=== PATIENT | female | born 1945 | race Caucasian/White ===

== ENCOUNTER 2021-08-28 07:31 | Day surgery (SDC) | payer OTHER, SELFPAY ==
[2021-08-28 07:45] VITALS: BP 148/79; PULSE 76; RESP 16; TEMP 36.3; O2SAT 96; BMI 29.6
[2021-08-28] MEDS: BUPIVACAINE 0.5% 30 ML INJECTION (07:45)
[2021-08-28] MEDS: SODIUM CHLORIDE 0.9 % (FLUSH) 10 ML SYRINGE IVF (07:58)
[2021-08-28] MEDS: LACTATED RINGERS 1000 ML 1,000 ML 100 ML IV (07:58)
[2021-08-28] MEDS: lidocaine HCL 2 % MULTIDOSE 20 ML VIAL INJECTION (08:12)
--- NOTE | 2021-08-28 08:30 | CRLHL7_ITS ---
For Patients: As a result of the Cures Act, medical imaging exams and procedure reports are released immediately into your electronic medical record. You may view this report before your referring provider. If you have questions, please contact your health care provider. Indication: LEFT 2ND FINGER ARTHRODESIS Technique: Two fluoroscopic images of the left index finger. Fluoroscopic time 24.2 seconds. IMPRESSION: Fluoroscopic guidance for fusion across the index finger DIP joint. Dictated by Kevon Wheeler MD @ 08/28/2021 10:39:27 AM (Electronically Signed)
[2021-08-28] MEDS: CEFAZOLIN 1 GM inj IVP (09:30)
--- NOTE | 2021-08-28 10:10 | SUR.OPER ---
PATIENT QUESTIONS ANSWERED SATISFACTORILY PREOPERATIVELY.? PATIENT BROUGHT TO OR #3 PER CART.? Patient positioned supine on OR #3 bed.?The perioperative?team supported arms bilaterally on arm boards.? Final approval of positioning by surgeon.?
[2021-08-28] MEDS: NEOMYCIN/BACITRACIN/POLYMYXIN B 1 APPLIC TOPICAL (10:11)
--- NOTE | 2021-08-28 10:22 | SUR.OPER ---
LEFT INDEX FINGER IRRIGATED W/N.S. POUR AT 1019.
--- NOTE | 2021-08-28 10:24 | PM.ORPRC ---
Procedure Note Date of procedure: 08/28/21 Procedure: PREOPERATIVE DIAGNOSIS: 1. 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 Left index finger DIP joint arthrodesis 2. 31544 - Intraoperative fluoroscopy use and interpretation. SURGEON: Mario Morataya MD. FIBERGLASS PIPE COVERING SUPERVISOR: Fermin RANGEL - Of note, an corporate legal assistant was critical for this case to aid in patient positioning, tissue retraction, limb manipulation/positioning, finger manipulation/control, protection of critical structures, closure, and splinting. ANESTHESIA: Digital block for anesthetic-10 mL of 50:50 mixture of 0.5% Marcaine plain and 1% lidocaine plain + MAC IMPLANTS: Synthes headless compression screw (2.0 mm)-26 mm in length TOURNIQUET: 35 min of digital Brian tourniquet with excellent capillary refill upon removal. COMPLICATIONS: None evident INDICATIONS: The patient is a pleasant 76-year-old female who has experienced left index finger deformity with angulation, subluxation of the DIP joint, pain, and dysfunction. Additionally, nonoperative management of been tried and failed. Thus surgery was indicated. DESCRIPTION OF PROCEDURE: Following a thorough discussion of risks, benefits, and alternatives consent was obtained and the operative digit(s) was marked. The patient was brought to the operating room and placed supine on the operating table after preoperative digital block was administered by me in preop holding. In addition, mac anesthesia was administered. 1 g IV Ancef was administered within 1 hour incision preoperatively. Proper time-out was performed identifying proper patient, site, and procedure. The operative extremity/digit was prepped and draped in the appropriate sterile fashion using ChloraPrep. The digit was exsanguinated and the tourniquet utilized on base of the digit. A 'V' incision was made on the dorsal aspect of the operative finger DIP joint. Sharp incision down through the skin & subcutaneous tissue allowed identification of the extensor tendon. This was divided transversely. It was tagged for later repair. We elevated the flaps proximally and distally being cautious particularly distally with the germinal matrix. The joint was entered, and effusion evacuated. The collateral ligaments were released with a 15 blade on both sides, and the volar condyles of the middle phalanx were rongeured off. Large dorsal osteophyte were also rongeured off. The calcified cartilage layer was excised with rongeur and high-speed bur creating a cup and cone formation to the middle phalanx and distal phalanx, respectively. This had excellent approximation then of the bony surfaces. Small drill holes were created within the distal phalanx base for bleeding purposes. A 0.8mm guide pin was passed in a antegrade fashion into the distal phalanx and confirmed on C-arm fluoroscopic imaging to be center center position within the phalanx. The pin was then reversed and passed retrograde into the middle phalanx. Again C-arm confirmed the pin to be within the center center position in the middle phalanx. Alignment of the finger was aimed for straight on the PA perspective and slight flexion on the lateral perspective. The screw was measured, and selected. The 1.6 mm drill bit was passed retrograde through the distal phalanx and into the middle phalanx towards the base. The screw was then selected and passed smoothly. It achieved excellent compression holding the arthrodesis site stable. At this stage, a thorough irrigation normal saline was performed. Tourniquet was released. Hemostasis achieved. Closure of the skin flaps performed with 4-0 nylon in interrupted fashion. Dressings were applied and a tube gauze bulky dressing was applied. PLAN: 1. Encourage elevation of the operative extremity. 2. Icing of the fingers and hand/wrist as tolerated/needed 3. Acetaminophen and/or Percocet as needed for pain control. 4. Follow up with nursing visit in 2 days for wound check/dressing removal and Stax splint application. Then follow-up at the 2 week alex postop PA visit for suture removal. Then at the 6 week alex with myself.
[2021-08-28 10:37] VITALS: BP 96/58; PULSE 69; RESP 16; TEMP 35.9; O2SAT 96
--- NOTE | 2021-08-28 10:39 | W.ANESCHARGE ---
Anesthesia Charges Start Date/Time Anesthesia Start Date: 08/28/21 Anesthesia Start Time: 09:26 Stop Date/Time Anesthesia Stop Date: 08/28/21 Anesthesia Stop Time: 10:40 Summary Emergency: No Extremes of Age: Over 72-CPT 02147
[2021-08-28 10:40] VITALS: BP 106/92; PULSE 69; RESP 16; O2SAT 97
[2021-08-28 11:00] VITALS: BP 125/71; PULSE 62; RESP 16; O2SAT 96
--- NOTE | 2021-08-28 13:14 | W.ANESCHARGE ---
Anesthesia Charges Start Date/Time Anesthesia Start Date: 08/28/21 Anesthesia Start Time: 09:26 Stop Date/Time Anesthesia Stop Date: 08/28/21 Anesthesia Stop Time: 10:40 Summary Emergency: No Extremes of Age: Over 72-CPT 86303
== END 2021-08-28 11:15 | disposition home or self-care (01) ==
PROVIDERS: PCP Internal Medicine; Visit Provider Orthopaedic Surgery Sports Medicine
PROC: (CPT 26860; principal; 2021-08-28 09:00)
DX: M19.042 Primary osteoarthritis, left hand (principal); M25.742 Osteophyte, left hand
CPT/HCPCS: 26860; 01820; 73140; 76000; 99100; C1713; J0690; J1100; J2250; J2405; J2704; J3010; J3490; J7120

== ENCOUNTER 2021-10-17 11:30 | Outpatient (RCR) | payer OTHER, SELFPAY ==
--- NOTE | 2021-10-09 16:01 | OT.OPOE ---
OT Outpatient Ortho Eval OT Outpatient Ortho Eval Start: 10/09/21 15:02 Freq: Status: Active Protocol: Document 10/09/21 15:03 AMB (Rec: 10/09/21 15:57 AMB [id number]) E-signed By Lisa Lazar, OTR/L, CLT, HORSE TRAINER OT OP Ortho Eval Details Type Type Eval Complexity Low Outpatient History/Precautions Insurance Information Insurance Information Medicare B Current Condition/Medical Diagnosis Referring Provider Dr Morataya Treatment Diagnosis PO left index finger DIP joint arthrodesis Date of Onset 08/28/21 Medical Contraindications HTN,Metal Implants,Arthritis Medical/Functional History Medical History Reviewed Yes Prior Level of Function/Mobility Active Problems (Updated 08/22 @ 09:56 by Maximino Mike MD) Status post fusion of joint of finger (Acute 08/28/21) Z98.1 left index finger DIP joint arthrodesis Hypertension (Acute) I10 Severe acute respiratory syndrome coronavirus 2 (SARS- CoV-2) vaccination declined ( Acute) Z28.21 Pneumococcal vaccination declined (Acute) Z28.21 Osteoporosis (Acute) M81.0 Hyperlipidemia (Acute) E78.5 Hiatal hernia (Acute 11/10/17) K44.9 GERD (gastroesophageal reflux disease) (Acute) K21.9 Degeneration of intervertebral disc of cervical region ( Acute) M50.30 Chronic low back pain (Acute) M54.50, G89.29 Arthritis of carpometacarpal ( CMC) joint of right thumb ( Acute 04/2018) M18.11 Adenomatous polyp of colon ( Acute) D12.6 Medical History (Updated 08/22 @ 09:56 by Maximino Mike MD) History of benign breast biopsy Hypertension Surgical History (Updated @ 08:34 by Jana To) History of back surgery History of bilateral cataract extraction (2017) History of bilateral total hip arthroplasty History of bladder surgery History of esophagogastroduodenoscopy ( EGD) (11/10/17) History of hysterectomy Status post fusion of joint of finger (08/28/21) Social History Employment Status Retired Oriented Mental Status No Concerns Ortho Subjective Subjective Subjective Pt states she is feeling really good. Pt is 6 weeks s/ sp LUE index finger DIP fusion secondary to severe arthritis . Pt is interested in initiation of HEP for AROM of her PIP and MP of her left index finger as well as ideas to decrease swelling. Pt states she is no longer needing anything for pain, most of the time she has no pain, occasional aching. Pt has a Staxx splint and is to wear it through the end of October. Pt understands the precautions of no active or PROM of the index DIP joint. Pain Assessment Pain Present Pain Present No Pain Reported Goniometric Comments Goniometric Comments Goniometric Comments AROM of BUE is WFL throughout with the exception of the LUE index finger. MP joint is 0-75 (0-90), PIP joint is 0-20 (0- 100). DIP not measured. Edema Assessment Additional Information Comments Pt has significant swelling in LUE index finger as expected at 6 weeks P/O. Circumferential measurements were taken with 1s phalanx = 7 .0cm (6.2), 2nd phalanx = 6. 2cm (5.5). OT Objective Data Hand Hand Dominance Right Skin/Wounds Skin Integrity Comments Surgical incision is well healed, no drainage, no s/s of infection. OT Problems Problems Other Problems Opening Containers,Computer Assessment Assessment Assessment Pt presents to OT 6 weeks post LUE index finger DIP joint fusion secondary to severe arthritis. Pt is wear Staxx splint to stabilize fusion and is having minmal to no pain. Pt will benefit from skilled OT intervention to improve AROM of the LUE index finger PIP and MP joints in order to improve functional use of LUE for picking up small objects, pinching, and gripping. OT Outpatient Treatment Plan Ortho Barriers Barriers to Goal Attainment Pt will only be able to attend 1 or 2 more visits as she is leaving town for the rest of the year in 2 weeks. Pt understands the importance of continued compliance with home program to maximize improvements. Occupational Therapy Treatment Plan - OP Potential Rehabilitation Potential Good Set Goals Goals Set with Patient Yes Goals Goals 1. Pt will demonstrate independence and compliance with HEP for AROM of the LUE index PIP and MP joints inorder to maximize positive outcomes and improve functional use of her LUE. 1 week 2. 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 2 weeks. Treatment Plan Treatment Plan Evaluation,Edema Control,Joint Mobilization,Manual Therapy, Splinting,Therapeutic Exercise ,Therapeutic Activities Expected Frequency 1x Week Expected Duration 2-4 Weeks Certification Certification I Certify That: Therapy Services Provided, Therapy Plan Established, Therapy Plan Reviewed
== END 2021-10-18 08:26 | disposition home or self-care (01) ==
PROVIDERS: PCP Internal Medicine; Visit Provider Orthopaedic Surgery Sports Medicine
DX: M19.042 Primary osteoarthritis, left hand (principal); Z51.89 Encounter for other specified aftercare
CPT/HCPCS: 97110; 97140; 97165; X5282

== ENCOUNTER 2022-07-31 07:01 | Outpatient (CLI) | payer OTHER, SELFPAY ==
--- NOTE | 2022-07-31 07:15 | CRLHL7_ITS ---
For Patients: As a result of the Century Cures Act, medical imaging exams and procedure reports are released immediately into your electronic medical record. You may view this report before your referring provider. If you have questions, please contact your health care provider. INDICATION: Neck pain. Cervical radiculopathy. TECHNIQUE: Noncontrast sagittal T1, T2, STIR and axial GRE sequences are provided. No comparisons. FINDINGS: Mild edema within the left C2-3 facet. Mild degenerate anterolisthesis of C7 on T1. Degenerative retrolisthesis of C4 on 5 and C5 on 6, C6 on 7. The overall stature, alignment and intrinsic marrow signal of the cervical spine is within normal limits. Cervical cord is normal. C2-3: Asymmetric uncovertebral joint and facet arthropathy results in moderate left and no right foraminal narrowing. No central canal narrowing. C3-4: Mild disc osteophyte complex results in mild central canal narrowing. Moderate to severe bilateral foraminal narrowing due to uncovertebral joint and facet arthropathy. C4-5, C5-6: Auen-gt-hoaofhrb disc osteophyte complex results in moderate central canal narrowing. Severe bilateral foraminal narrowing due to uncovertebral joint and facet arthropathy. C6-7: Mild broad-based posterior disc bulge endplate osteophyte with moderate facet arthropathy results in moderate central canal narrowing. Moderate to severe bilateral foraminal narrowing due to uncovertebral joint facet arthropathy. C7-T1: Central canal and right neural foraminal patent. Moderate to severe left foraminal narrowing with compression of the exiting left C8 nerve root. T1-2: Mild posterior disc bulge results in no central canal or foraminal narrowing. IMPRESSION: 1. Moderate central canal narrowing with severe bilateral foraminal narrowing at C4-5, C5-6. 2. Mild edema within the left C2-3 facet that may be due to reactive or advanced degenerative change. 3. Moderate central canal narrowing with moderate to severe bilateral foraminal narrowing at C6-7. 4. Moderate to severe left C7-T1 foraminal narrowing. 5. Milder degenerative changes within the remainder of the cervical spine as outlined above. Dictated by Chapincito Brown MD @ 08/01/2022 6:57:57 PM (Electronically Signed)
== END 2022-07-31 07:02 | disposition home or self-care (01) ==
LOC: MRI 07:01
PROVIDERS: PCP Internal Medicine; Visit Provider Internal Medicine
DX: M54.2 Cervicalgia (principal); M54.12 Radiculopathy, cervical region; M50.221 Other cervical disc displacement at C4-C5 level; M50.222 Other cervical disc displacement at C5-C6 level; M51.25 Other intervertebral disc displacement, thoracolumbar region; M50.223 Other cervical disc displacement at C6-C7 level
CPT/HCPCS: 72141

== ENCOUNTER 2022-09-11 10:00 | Outpatient (RCR) | payer OTHER, SELFPAY ==
--- NOTE | 2022-09-02 09:26 | PT.OPEX ---
PT [place] Outpatient Eval PT [facility] Outpatient Eval Start: 09/02/22 07:04 Freq: Status: Active Protocol: Document 09/02/22 07:10 MARIO (Rec: 09/02/22 07:18 MARIO [id number]) E-signed By Ricarda Dan PT Physical Therapy Outpatient Evaluation Insurance Information Recert Due Date 11/27/22 Insurance Name Medicare B Medical Diagnosis Cervical Radiculopathy Treating Diagnosis Impaired CX AROM CX Pain and reduced ease of prolonged FF (read, cook, cleaning, etc) CX muscle weakness Poor posture Referring MD Dr Maximino Mike Subjective Subjective Terrie reports having CX pain intermittently for the past 30 years, but has been greater pain the past 2 years. This time she has pain into Lt shoulder and upper arm. She sleeps on that side so it wakes her up in the night too. She has a home traction unit that she got about 15 years ago, she has not yet tried it, wanted to see PT first. She recently had an MRI and findings of C2-C7 are getting more narrowed, no disc herniations though. She is Right handed. She plays water volleyball twice a week, Thursday and Thursday. They have a 5 level house so she is active up/down all day long. Also some yard work, but her does most of that. Just finished off basement, active with [employer] projects. She has had both hips replaced so not doing as much walking. Cervical pain comes and goes, no real pattern of pain. Have moderate/constant ACUNA and neck pain, but sharp pain in upper arm. Take celebrex for arthritis, but no pain pills. Just move slower, no activities she does not do. She cooks and cleans with her . Share duties. Hard to hold tablet to read when sitting up, prolonged FF of neck to read irritates it. Pain Comments 2-3/10 ACUNA and neck pain 0-8/10 but does not last long. Date of Last Physician Visit 08/06/22 Current Work Status Retired Occupation She completed scheduling/ ordering/purchasing. Sitting and computer work Preferred Name Dedra/terrie Precautions Treatment Precautions/Contraindications Shimon TOD Hypertension S/P Back Surgery Bladder Surgery Weight Bearing Status Full Weight Bearing Therapy Limitations/Systems Review Vision Objective Range of Motion CX Lt ROT reduced by approx 15 %. Assessment Assessment/Impression 77 yo female with DX of Cervical Radiculopathy. She presents with slightly forward head and increased upper CX lordosis. She has hypertonicity at psps from Occiput to T5, also noted at suboccipital mm group, levator , scalenes and UT. Greater tone on the Lt side. Impaired mid to lower CX down glides. Lt shoulder AROM is limited by 15 deg in FF/ABD/ER when compared to Rt non-involved. Functional reach of ER - hand to occiput, IR - hand to sacrum. She will benefit from continued skilled physical therapy to complete STM/MFR/ TPR, TASTM, cupping and mechanical traction, home stretch/strengthening program. Thank you for this referral. Plan of Care Rehabilitation Potential Good Physical Therapy Goals In 4-6 visits, Terrie will be able to: 1. Report reduced sharp pain in Lt UE from 0-8/10 to 0-5/10 75% of occurances 2. Improved CX posture/ alignment in sitting and standing 3. Increased UE AROM symmetric to Rt and executed without end pain greater tod 2/10 In 10-12 visits, Terrie will be able to: 1. IND in proper execution of HEP with emphasis on reps, HOLD time and alignment 2. Sleep up to 6 hours without awakening due to shoulder/ neck pain greater than 3/10 75 % of the time. 3. Reduced ACUNA/neck pain by at least 50% 4. Return to 90% PLOF with moderate house work, water volleyball, cooking. Coordination/Communication With Referral Source Treatment Plan/Direct Interventions Joint Mobilization,Manual Therapy,Neuromuscular Re-ed, Self-Care/Home Management, Therapeutic Activities, Therapeutic Exercises,Traction (Mechanical) Frequency/Duration 1-2X/Wk for 12 visits Patient Will Be Discharged From Therapy Completion of LTG(s),Skills Plateau,Independent w/HEP, Independently Progressing Evaluation Billing Untimed Code Treatment Minutes 27 Complexity Moderate Certification Information Initial Certification Date 09/02/22 Ending Certification Date 11/27/22 Provider Signature Shows Agreement With POC & Medical Necessity Physician Signature & Date Requested Please Sign/Date Here Physician Comment/Change : Physician NPI Number #
== END 2022-12-25 17:29 | disposition home or self-care (01) ==
PROVIDERS: PCP Internal Medicine; Visit Provider Internal Medicine
DX: M54.12 Radiculopathy, cervical region (principal); R29.3 Abnormal posture; M62.81 Muscle weakness (generalized); Z51.89 Encounter for other specified aftercare
CPT/HCPCS: 97012; 97110; 97140; 97162

== ENCOUNTER 2022-09-16 08:41 | Outpatient (CLI) | payer OTHER, SELFPAY | END 2022-09-16 08:42 | disposition home or self-care (01) | LOC: NFLDREF 09-17 14:54 | PROVIDERS: PCP Internal Medicine; Referring Provider Internal Medicine; Visit Provider Internal Medicine | DX: I10 Essential (primary) hypertension (principal); E78.5 Hyperlipidemia, unspecified; K21.9 Gastro-esophageal reflux disease without esophagitis; D12.6 Benign neoplasm of colon, unspecified | CPT/HCPCS: 80053; 80061 ==

== ENCOUNTER 2023-07-02 09:12 | Outpatient (CLI) | payer OTHER, SELFPAY ==
--- OUTSIDE RECORDS SUMMARY | 2023-07-02 09:14 | XMS_ITS | Clinical Summary ---
Author Organization [facility] Address [place] [address] 07 Care Team Providers Care Chartered Financial Analyst Name Role Phone Dilip Harris MD Primary Care Provider Allergies No known active allergies Medications Medication Sig Dispensed Refills Start Date End Date Status NAPROXEN 500 MG TAB take 1 tablet by mouth two times daily 180 0 05/17/2007 Active lansoprazole (PREVACID) 30 mg capsule Take 1 capsule by mouth once daily. 30 capsule 11 08/11/2012 Active Celecoxib (CELEBREX) 50 mg capsule Take 1 capsule by mouth 2 times daily. 0 11/10/2017 Active Active Problems Problem Noted Date Diagnosed Date Personal history of colonic polyps 08/19/2012 Overview: Colonoscopy 08/2012 diverticulosis repeat in 5 years Colonoscopy 10/2017 polyp, repeat in 5 years Osteoarthrosis, unspecified whether generalized or localized, unspecified site Overview: hips Unspecified urinary incontinence Reflux esophagitis Overview: EGD 08/2012 reflux, no Smith's on the last two EGD's, no repeat EGD needed EGD 11/2017 2 cm hiatal hernia Resolved Problems Problem Noted Date Diagnosed Date Resolved Date Smith's esophagus 08/17/19 13 Immunizations Name Administration Dates Next Due Influenza, IIV3 (Age >=3 years) 12/24/2005 Td (Age >=7 Years) 02/09/1994 Tdap 12/24/2005 Family History Medical History Relation Name Comments Cancer Father esophageal Cancer-colon Mother Relation Name Status Comments Father Mother Social History Tobacco Use Types Packs/Day Years Used Date Smoking Tobacco: Former Cigarettes Q uit: 02/09/1998 Smokeless Tobacco: Never Tobacco Cessation:Counseling Given: Yes Alcohol Use Standard Drinks/Week Comments Yes 1.7 (1 standard drink = 0.6 oz p ure alcohol) per week Sex and Gender Information Value Date Recorded Sex Assigned at Not on file Gender Identity Not on file Sexual Orientation Not on file Obstetrics History Last Filed Vital Signs Vital Sign Reading Time Taken Comments Blood Pressure 123/80 08/19/2012 10:55 AM CDT Pulse 96 08/19/2012 10:55 AM CDT Temperature 36.8 ??C (98.2 ??F) 06/07/2007 4:06 PM CD T Respiratory Rate - - Oxygen Saturation 97% 08/19/2012 10:55 AM CDT Inhaled Oxygen Concentration - - Weight 69.9 kg (154 lb) 06/07/2007 4:06 PM CDT Height - - Body Mass Index - - Plan of Treatment Health Maintenance Due Date Last Done Comments Depression screening for age 12+ 1959 BMI (ht and wt on same day) for age 18+ 08/15/1965 Hepatitis C screening for ag e 18-79 08/15/1965 Zoster (shingles) series for age 50+ (1 of 2) 08/15/1997 Lipids for age 45-75 12/24/2010 12/24/2005 DEXA/DXA scan for age 65+ 08/15/2012 Pneumococcal series for age 65+ (1 of 1 - PCV) 08/15/2012 Tetanus booster 12/25/2015 12/24/2005, 02/09/1994 COVID-19 vaccine series ( - 2022-24 season) 2022 Colonoscopy through age 75 10/21/202210/21, 10/21/2017, 08/19/2012, Additional history exists Influenza for age 65+ 10/11/2023 12/24/2005 Tdap Completed 12/24/2005 Procedures Procedure Name Priority Date/Time Associated Diagnosis Comments COLONOSCOPY 10/21/2017 8:40 AM CDT LIPID PANEL Timed 12/24/2005 10:05 AM IRRIGATION DISTRICT MANAGER from Last 3 Months or Most Recently Relevant to Health Maintenance Results * COLONOSCOPY (10/21/2017 8:40 AM CDT) 10/21/2017 8:40 AM CDT Narrative Transcriptions Graham Thurman MD - 10/21/2017 9:49 AM CDT Patient Name: Terrie Flores Procedure Date: 10/21/2017 Gender: Female Date of : 1945 Admit Type: Outpatient Procedure: Colonoscopy Proceduralist: Graham Thurman MD , Brianna Fiore (Nurse) Indications/Pre-Op Diagnosis: Surveillance: Personal history ofadenomatous polyps on last colonoscopy 5 years ago, Last colonoscopy: August 2012 Medications: Fentanyl 100 micrograms IV, Midazolam 3 mgIV, The level of sedation administered wasmoderate Procedure Description: The patient had risks, benefits and alternatives explained to andgave informed consent. The patient had a stable cardiopulmonary status and judged an adequate candidate for conscious sedation. The [id number]-[id number] was passed through the anus and advanced tothe cecum, identified by appendiceal orifice and ileocecal valve. The colonoscopy was performed without difficulty. The patient toleratedthe procedure well. The quality of the bowel preparation was good. The ileocecal valve, appendiceal orifice, and rectum were photographed. Complications: No immediate complications. Estimated Blood Loss & Specimen: Estimated blood loss: none. Specimen collected - Yes and sent to Laboratory Findings: The perianal and digital rectal examinations were normal. A 3 mm polyp was found in the proximal transverse colon. The polypwas sessile. The polyp was removed with a cold biopsy forceps. Resectionand retrieval were complete. The exam was otherwise without abnormality on direct and retroflexion views. Impressions/Post-Op Diagnosis: - One 3 mm polyp in the proximal transverse colon, removed with acold biopsy forceps. Resected and retrieved. - The examination was otherwise normal on direct and retroflexionviews. Recommendation: - Patient has a contact number available for emergencies. The signsand symptoms of potential delayed complications were discussed with the patient. Return to normal activities tomorrow. Written discharge instructions were provided to the patient. - Resume previous diet. - Continue present medications. - Await pathology results. - Repeat colonoscopy in 5 years for surveillance. Moderate Sedation: Moderate (conscious) sedation was administered by the endoscopy nurse and supervised by the endoscopist. The following parameters were monitored: oxygen saturation, heart rate, respiratory rate, blood pressure, adequacy of pulmonary ventilation and reponse to care. [facility] and nursing notes for moderate sedation details. Total physician intraservice time was 16 minutes. Graham Thurman MD 10/21/2017 9:49:30 AM This report has been signed electronically. Note Initiated On: 10/21/2017 8:40 AM Procedure Code(s): --- Professional --- 49404, Colonoscopy, flexible; with biopsy, single or multiple Diagnosis Code(s): --- Professional --- Z86.010, Personal history of colonicpolyps D12.3, Benign neoplasm of transverse colon (hepatic flexure or splenic flexure) CPT copyright 2017 [employer] [place] [employer]. All rights reserved. The codes documented in this report are preliminary and upon photoengraving sketch maker reviewmay be revised to meet current compliance requirements. Scope In: 9:28:26 AM Scope Withdrawal Time 0 hours 8 minutes 45 seconds Scope Out: 9:42:22 AM Graham Thurman MD PROCEDURE ORD * (ABNORMAL) LIPID PANEL (12/24/2005 10:05 AM IRRIGATION DISTRICT MANAGER) CHOLESTEROL,TOTAL 212(H) 110 - 199 mg/dL [facility] TRIGLYCERIDES 74 <150 mg/dL [facility] HDL CHOLESTEROL 67 >40 mg/dL [facility] CHOL/HDL RATIO 3.16 <4.51 [facility] LDL CHOLESTEROL 130 <131 mg/dL [facility] PATIENT STATUS Fasting [facility] 12/24/2005 10:0 5 AM IRRIGATION DISTRICT MANAGER 12/24/2005 10:05 AM IRRIGATION DISTRICT MANAGER Dilip Harris MD CHEMISTRY [facility] [address] [place] [address] from Last 3 Months or Most Recently Relevant to Health Maintenance Care Teams Chartered Financial Analyst Relationship Specialty Start Date End Date Dilip Harris MD [address] [place] [address] PCP - General 08/11/05
--- NOTE | 2023-07-02 10:15 | CRLHL7_ITS ---
For Patients: As a result of the Century Cures Act, medical imaging exams and procedure reports are released immediately into your electronic medical record. You may view this report before your referring provider. If you have questions, please contact your health care provider. BILATERAL SCREENING MAMMOGRAM WITH COMPUTER-AIDED DETECTION AND TOMOSYNTHESIS TECHNIQUE: CC and MLO views were obtained. These mammographic images have been obtained using full-field digital technique. These mammographic images were interpreted with the benefit of computer-aided detection. Breast Tomosynthesis was used in this interpretation. COMPARISON FILM: 06/23/22, 10/22/20, 10/21/19. FINDINGS: There are scattered areas of fibroglandular density. IMPRESSION: There is no radiographic evidence for malignancy. ASSESSMENT: BI-RADS Category 1: Negative RECOMMENDATION: Routine screening mammogram in 1 year. A lay language report of this examination will be provided to the patient. Kevon Wheeler M.D. Diagnostic Radiologist [email or web address] SP/Dictated by: Kevon Wheeler MD @ 07/02/2023 12:57:00 PM (Electronically Signed)
== END 2023-07-02 09:13 | disposition home or self-care (01) ==
LOC: MAMMO 09:13
PROVIDERS: PCP Internal Medicine; Visit Provider Internal Medicine
DX: Z12.31 Encounter for screening mammogram for malignant neoplasm of breast (principal)
CPT/HCPCS: 77063; 77067

== ENCOUNTER 2023-09-17 07:30 | Outpatient (CLI) | payer OTHER, SELFPAY ==
--- OUTSIDE RECORDS SUMMARY | 2023-09-22 07:19 | XMS_ITS | Clinical Summary ---
Author Organization [facility] Address [place] [address] 07 Care Team Providers Care Transport Rn Name Role Phone Dilip Harris MD Primary [...] age 18+ 08/15/1965 Hepatitis C screening for age 18-79 08/15/1965 Zoster (shingles) series for age 50+ (1 of 2) 08/15/1997 DEXA/DXA scan for age 65+ 08/15/2012 Pneumococcal series for age 65+ (1 of 1 - PCV) 08/15/2012 Tetanus booster 12/25/2015 12/24/2005, 02/09/1994 COVID-19 vaccine series (1 - 2022-24 season) 2022 Influenza for age 65+ 10/11/2023 12/24/2005 Tdap Completed 12/24/2005 Care Teams Transport Rn Relationship Specialty Start Date End Date Dilip Harris MD [address] [place] [address] [facility] - General 08/11/05
== END 2023-09-17 07:31 | disposition home or self-care (01) ==
LOC: NFLDREF 09-22 07:17
PROVIDERS: PCP Internal Medicine; Referring Provider Internal Medicine; Visit Provider Internal Medicine
DX: E78.5 Hyperlipidemia, unspecified (principal); I10 Essential (primary) hypertension
CPT/HCPCS: 80053; 80061

== ENCOUNTER 2023-09-22 15:15 | Outpatient (RCR) | payer OTHER, SELFPAY ==
--- NOTE | 2023-09-09 12:30 | PT.OPEX ---
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 Strengthening including core. Imaging Report Information M62.552 left thigh weakness R26.2 difficulty walking Referring MD Mario Morataya MD ([facility]) Subjective Subjective Thought L hip had to be replaced - MD feels its abductor tendonitis. She feels that leg doesn't work as well . Has always needed to use UE' s to bring leg into car. Does normally sit [place]ican style but use arms to assist with this. Other times noting weakness: walking further than 1 block. Does go to [place] and can't walk all day, will be leaving in Oct and spending winter there. Does have a handicap sticker. Does use cane when walking longer distances as needed. Does have pain when walking longer than 1 block, will need to use a pain pill when walking farther. Location of pain lateral hip. Also has history of LBP, sees spine MD tomorrow. Exercise: Has a [employer] balance board, has started doing some of these exercises. Plays water VB 2x/week (1.5 hour each time). H/o L TOD ~2008 [facility]. noting no revision of TOD indicated at this time, feels likely hip abductor insertional tendinitis. -Increases in pain: walking >1 block, getting up from the floor, jumping off to the side during water VB. Has a 5 level house and can feel pain when doing multiple levels (in [place] won't have steps). -Decreases in pain: resting -Location of pain: see above PMHx: L TOD 2008, R TOD 2014, HTN, osteoporosis, chronic LBP , hiatal hernia, back surgery x 2 in 1979 and 2007 ( laminectomy), hysterectomy, bladder surgery -Goals: increase strength, get up from the floor using a squat movement. Objective Other/Pertinent Objective Posture: level IC, loss of LS lordosis, inc?d foot pronation on L LE Palpation: TTP mid ITB/lateral thigh. Minimal TTP tissue surrounding femoral head SLS (30 sec): 5 sec eac side before LOB. L LE moderate pelvic drop with foot pronation/navicular drop. R LE minimal drop and improved foot posture Gait: antalgic gait with pelvic drop during stance phase of L LE RANGE OF MOTION: Lumbar ROM: -Flx: fingertips to ankles -Ext: Extension 25% reduced LS segmental mobility. Pt noting HF stretch -R Rot: 50% limitation -L Rot: WNL LE ROM (R/L): -Hip ER90: 60 R / 80 L -Hip IR90: 30 R / 40 R -Hip flex: >120 -Hip Abd supine: limited bilat STRENGTH: LE Strength (R/L) -Hip flexion: 2+ L / 4- R -Hip IR 4- bilat -Hip ER: 3+ ea side -Hip abduction: 2+ ea side SPECIAL TESTS: LE Flexibility (R/L) -Hamstrin* from full extension Assessment Assessment/Impression Pt is a 78 y/o female who presents with concerns of L LE weakness and lateral hip pain with h/o L TOD 2008 ( experimental surgery via [facility] per pt report). Signs and symptoms likely indicating / consistent with global L hip weakness and poor pelvic stability. HF strength 3- on the L with partial ROM against gravity, hip abdutor weakness , poor pelvic stability with pelvic drop, femoral IR/foot pronation on L side. Patient also has notable objective findings including core weakness and gait abnormalities also likely contributing to the problem. Patient is a good candidate for skilled therapy to target deficits described above. Skilled PT intervention is necessary for use of therapeutic exercise manual therapy, neuromuscular re- education, gait training, and therapeutic activity. Functional impairments include difficulty with: proximal weakness impacting ability to climb stairs, walk, balance. See appropriate sections of PT eval for complete list of goals and POC. D/C plan and criteria is for pt to achieve the goals as listed below or until max rehab potential is met. Pt was agreeable with plan of care and goals established. Pt will be leaving [place] mid Oct for [place]/ [place] for the winter. Plan of Care Rehabilitation Potential Good Physical Therapy Goals STG (within 2 visits) 1) Pt will initiate HEP without increased pain/ symptoms 2) Pt will demonstrate ability to isometrically activate TA and gluts with minimal compensations in order to improve lumbopelvic stability LTG (within 5 visits) 1) Pt will be indep with HEP for terminal computer operator management of pain/symptoms 2) Pt will report at least 60% improvement in stability/ strength since start of PT for return to PLOF 3) Pt will demonstrate ability to maintain activation of TA and gluts with minimal compensations during dynamic lower/upper body mvmts in order to improve lumbopelvic stability 4) Pt will report ability to walk at least 2 blocks pain not exceeding 2/10 for improved community mobility Treatment Plan/Direct Interventions Electrical Stimulation,Gait Training,Joint Mobilization, Manual Therapy,Neuromuscular Re-ed,Self-Care/Home Management,Therapeutic Exercises Frequency/Duration 1x/wk x 5 visits Patient Will Be Discharged From Therapy Skills [facility],Independent w/ HEP Evaluation Billing Untimed Code Treatment Minutes 30 Complexity Low Certification Information Initial Certification Date 09/09/23 Ending Certification Date 12/08/23 Provider Signature Required Yes Provider Signature Shows Agreement With POC & Medical Necessity Physician NPI Number Write NPI# Here Physician Comment/Change : Physician Signature & Date Requested Please Sign/Date Here
== END 2023-09-24 09:03 | disposition home or self-care (01) ==
PROVIDERS: PCP Internal Medicine; Visit Provider Orthopaedic Surgery Sports Medicine
DX: Z96.642 Presence of left artificial hip joint (principal); M76.892 Other specified enthesopathies of left lower limb, excluding foot; M62.552 Muscle wasting and atrophy, not elsewhere classified, left thigh; R26.2 Difficulty in walking, not elsewhere classified; Z51.89 Encounter for other specified aftercare
CPT/HCPCS: 97110; 97140; 97161

== ENCOUNTER 2024-07-27 07:55 | Outpatient (CLI) | payer OTHER, SELFPAY ==
--- NOTE | 2024-07-27 08:15 | CRLHL7_ITS ---
For Patients: As a result of the Century Cures Act, medical imaging exams and procedure reports are released immediately into your electronic medical record. You may view this report before your referring provider. If you have questions, please contact your health care provider. INDICATION: BILATERAL SCREENING MAMMOGRAM, ASYMPTOMATIC 78 Y/O FEMALE COMPARISON: 07/02/2023, 06/23/2022, 10/22/2020 TECHNIQUE: Digital mammogram in CC and MLO projections including computer-aided detection (CAD) and tomosynthesis. BREAST COMPOSITION: There are scattered areas of fibroglandular density. FINDINGS: No suspicious findings. ASSESSMENT: BI-RADS 1 Negative RECOMMENDATION: Annual screening mammogram. A lay language report of this examination will be provided to the patient. Dictated by: Kevon Wheeler MD @ 07/27/2024 10:06:54 (Electronically Signed)
== END 2024-07-27 07:56 | disposition home or self-care (01) ==
LOC: MAMMO 07:55
PROVIDERS: PCP Internal Medicine; Visit Provider Internal Medicine
DX: Z12.31 Encounter for screening mammogram for malignant neoplasm of breast (principal)
CPT/HCPCS: 77063; 77067

== ENCOUNTER 2024-10-11 08:06 | Outpatient (CLI) | payer MEDICARE, SELFPAY | END 2024-10-11 08:07 | disposition home or self-care (01) | LOC: NFLDREF 15:11 | PROVIDERS: PCP Internal Medicine; Referring Provider Internal Medicine; Visit Provider Internal Medicine | DX: E78.5 Hyperlipidemia, unspecified (principal); I10 Essential (primary) hypertension | CPT/HCPCS: 80053; 80061 ==

== ENCOUNTER 2024-10-13 13:45 | Outpatient (CLI) | payer MEDICARE, SELFPAY ==
--- NOTE | 2024-10-13 14:00 | XR_ITS ---
Patient: LEELA MAYFIELD Facility:?[facility] Patient ID:?[id number] Site Patient ID:?[id number] Site :?1945 Study:?DEXA-Bone Density SPINE & LEFT FOREARM-10/13/2024 8:42:48 AM Ordering Physician:?AN SIMEON Final Report: XR DXA BONE MINERAL DENSITY (BMD) Current height (in): 62.0. Weight (lb): 155.0. Menopause age: 60. Ethnicity: White. Reason for exam: Age-related osteoporosis. 1. Have you had a previous hip or vertebral fracture? Yes. 2. Have you had any fractures during your adult life which did not result from significant trauma (e.g., auto accident)? Yes. 3. Did either of your parents have a hip fracture? No. 4. Do you smoke? No. 5. Have you ever taken Glucocorticoids? No. 6. Do you have rheumatoid arthritis? Yes. 7. Do you have secondary osteoporosis? No. 8. Do you drink 3 or more alcoholic drinks per day? No. 9. Are you being treated for osteoporosis? Yes. 10. Have you ever taken any of the following medications: Actonel, Evista, Fosamax, Miacalcin, Reclast, Boniva, Forteo, HRT (i.e. estrogen/hormone therapy), Protelos, Prolia, Vitamin D, Calcium, other ? please specify. ANSWER: Yes, vitamin D, calcium. 11. Do you have any of the following medical conditions: Anorexia or bulimia, asthma or emphysema, end stage renal disease, hyperparathyroidism, any seizure disorders, cancer, inflammatory bowel diseases, hysterectomy, other ? please specify. ANSWER: Yes, hysterectomy. 12. What was your maximum height (inches)? 63. 13. Do you perform weight bearing exercise regularly? No. 14. Do you regularly consume dairy products? Yes. 15. Do you drink caffeinated beverages? Yes. 16. At what age did your period start? 15. 17. Are you premenopausal? No. 18. How many full-term pregnancies have you had? 2. 19. Have you ever missed your period for more than 6 months in a row (not including or menopause)? Yes. TECHNIQUE: Bone mineral density study was performed using the [employer]. FINDINGS: The results of the study expressed as bone mineral density (BMD) are as follows: Lumbar spine L1 to L4: BMD: 1.178 g/cm2. T-score: 1.5. Z-score: 3.9 Radius Left 33%: BMD: 0.662 g/cm2. T-score: -0.5. Z-score: 2.3 IMPRESSION: Normal bone density. *Comparison exams done prior to 07/2019 were performed on different unit, [employer] COMPARISON: Compared with scan of 06/19/2021, the bone mineral density has increased by 4.4 percent at the spine. Kevon Wheeler M.D. Diagnostic Radiologist [email or web address] DSM/kassandraw: D& Transcribed: 9:39 am DW/Dictated by: Kevon Wheeler MD @ 10/14/2024 8:58:00 AM Signed by:Osman Wheeler MD @10/14/2024 10:11:11 AM (Electronic Signature)
== END 2024-10-13 13:46 | disposition home or self-care (01) ==
LOC: RAD 13:45
PROVIDERS: PCP Internal Medicine; Visit Provider Internal Medicine
DX: M81.0 Age-related osteoporosis without current pathological fracture (principal)
CPT/HCPCS: 77080

== ENCOUNTER 2024-10-20 06:10 | Outpatient (CLI) | payer MEDICARE, SELFPAY ==
--- NOTE | 2024-10-20 07:59 | P.ANES_ITS ---
Anesthesia Charges Start Date/Time Anesthesia Start Date: 10/20/24 Anesthesia Start Time: 07:22 Stop Date/Time Anesthesia Stop Date: 10/20/24 Anesthesia Stop Time: 07:57 Summary Extremes of Age - Over 70 or under 1: POLICY WRITER TYPIST Coding CPT Codes CPT Codes: ANES UPR LWR GI NDSC PX - 35389 ([id number]) P2 - PATIENT W/MILD SYST DISEASE, QK - CHANNELING MACHINE RUNNER 2-4 CNCRNT ANES PROC, QX - POLICY WRITER TYPIST SVC W/ MD MED DIRECTION Additional Codes: Summary - Extremes of Age - Over 70 or under 1: POLICY WRITER TYPIST ([id number])
--- NOTE | 2024-10-20 07:59 | W.ANESCHARGE ---
Anesthesia Charges Start Date/Time Anesthesia Start Date: 10/20/24 Anesthesia Start Time: 07:22 Stop Date/Time Anesthesia Stop Date: 10/20/24 Anesthesia Stop Time: 07:57 Summary Extremes of Age - Over 70 or under 1: LABORER HOISTING Coding CPT Codes CPT Codes: ANES UPR LWR GI NDSC PX - 02396 ([id number]) P2 - PATIENT W/MILD SYST DISEASE, QK - CLASS A LINEMAN 2-4 CNCRNT ANES PROC, QX - LABORER HOISTING SVC W/ MD MED DIRECTION Additional Codes: Summary - Extremes of Age - Over 70 or under 1: LABORER HOISTING ([id number])
--- NOTE | 2024-10-20 08:33 | P.ANES_ITS ---
Anesthesia Charges Start Date/Time Anesthesia Start Date: 10/20/24 Anesthesia Start Time: 07:22 Stop Date/Time Anesthesia Stop Date: 10/20/24 Anesthesia Stop Time: 07:57 Summary Extremes of Age - Over 70 or under 1: MDA Coding CPT Codes CPT Codes: ANES UPR LWR GI NDSC PX - 79729 ([id number]) P2 - PATIENT W/MILD SYST DISEASE, QK - EGG CRATER 2-4 CNCRNT ANES PROC, QX - CORK MIXER SVC W/ MD MED DIRECTION Additional Codes: Summary - Extremes of Age - Over 70 or under 1: MDA ([id number])
--- NOTE | 2024-10-20 08:33 | W.ANESCHARGE ---
Anesthesia Charges Start Date/Time Anesthesia Start Date: 10/20/24 Anesthesia Start Time: 07:22 Stop Date/Time Anesthesia Stop Date: 10/20/24 Anesthesia Stop Time: 07:57 Summary Extremes of Age - Over 70 or under 1: MDA Coding CPT Codes CPT Codes: ANES UPR LWR GI NDSC PX - 33059 ([id number]) P2 - PATIENT W/MILD SYST DISEASE, QK - RN ASSESSMENT 2-4 CNCRNT ANES PROC, QX - EVP SVC W/ MD MED DIRECTION Additional Codes: Summary - Extremes of Age - Over 70 or under 1: MDA ([id number])
== END 2024-10-20 06:11 | disposition home or self-care (01) ==
LOC: OP CLINIC 06:11
PROVIDERS: PCP Internal Medicine; Visit Provider Internal Medicine
DX: Z12.11 Encounter for screening for malignant neoplasm of colon (principal); Z86.0100 Personal history of colon polyps, unspecified; D12.2 Benign neoplasm of ascending colon; D12.5 Benign neoplasm of sigmoid colon; K21.9 Gastro-esophageal reflux disease without esophagitis; R13.10 Dysphagia, unspecified
CPT/HCPCS: 00813; 43239; 45380; 88305; 99100; J2704

== ENCOUNTER 2024-11-16 06:00 | Day surgery (SDC) | payer MEDICARE, SELFPAY ==
[2024-11-16 06:38] VITALS: BMI 29.6
[2024-11-16 06:45] VITALS: BP 128/66; PULSE 71; RESP 16; TEMP 36.9; O2SAT 98
[2024-11-16] MEDS: SODIUM CHLORIDE 0.9 % (FLUSH) 10 ML SYRINGE IVF (06:45)
[2024-11-16] MEDS: LACTATED RINGERS 1000 ML 1,000 ML 100 ML IV (06:45)
--- NOTE | 2024-11-16 06:57 | W.PM.H&PU ---
History & Physical Update History & Physical Update H&P Reviewed and patient assessed: No changes noted
[2024-11-16 07:15] VITALS: BP 111/64; PULSE 71; RESP 12; O2SAT 97
[2024-11-16] MEDS: MIDAZOLAM HCL 1 MG/ML inj IVP (07:15)
--- NOTE | 2024-11-16 08:47 | PM.ORPRC ---
Procedure Note Date of procedure: 11/16/24 Procedure: PREOPERATIVE DIAGNOSIS: 1. Left thumb CMC osteoarthritis, primary, severe POSTOPERATIVE DIAGNOSIS: 1. Left thumb CMC osteoarthritis, primary, severe PROCEDURE: 1. Left thumb CMC suspension arthroplasty 2. Intraoperative fluoroscopy [operated][ and interpreted] by [Mario Morataya M.D.] for intraoperative evaluation of pin trajectory, anchor placement, and thumb positioning. Fluoroscopy time was 19 seconds. SURGEON: Mario Morataya M.D. COMPUTER NETWORK AND SYSTEMS ENGINEER: [Fermin RANGEL]. Of note, an assistant plant manager was critical for this case to aid in patient positioning, arm manipulation, instrument exchange, and closure. ANESTHESIA: Regional block EBL: 20 mL TOURNIQUET: 20min at 225 torr-forearm tourniquet IMPLANTS: Arthrex [ ] mm peek fork-tipped interference screw COMPLICATIONS: [None evident] INDICATIONS: The patient is a pleasant 79-year-old female. They have experienced significant pain about the thumb CMC joint on the left upper extremity. Nonoperative management including cortisone injection, activity modification, bracing, rest, oral NSAIDs, etc has not provided long-term relief. Given the failure of nonoperative management, surgery was recommended. FINDINGS: Severe osteoarthritis of the 1st CMC joint seen by osteophyte formation, chondral loss, and joint space narrowing, consistent with CMC osteoarthritis DESCRIPTION OF PROCEDURE: After a thorough discussion of risks, benefits, and alternatives, the patient was brought to the operating room and placed upon the operating table. Induction of anesthesia was undertaken as previously noted. [1 g IV Ancef] was administered within 1 hr incision preoperatively. Appropriate time-out was performed identifying proper patient, site, and procedure. The left upper extremity was prepped and draped in the appropriate sterile fashion using ChloraPrep. The limb was exsanguinated and tourniquet inflated. A longitudinal incision was made along the dorsal aspect of the 1st metacarpal base extending to the proximal portion of the trapezium. Sharp incision through skin and blunt dissection to subcutaneous tissue allowed identification and protection of the crossing neurovascular structures including the SBRN. The dorsal capsule was mobilized off the metacarpal base and trapezium sharply after dividing it longitudinally. The crossing branch of radial artery was visualized in the proximal extent of the wound, its small branches to the capsule were coagulated, but the rest of the artery was protected. The trapezium was freed from the surrounding capsular tissues circumferentially with a combination of 15 blade and a [place] blade. After freeing the trapezium from the superficial tissues, the bone was halved with a microsagittal saw a majority of the way through the bone. Caution was taken not to penetrate completely so as not to injure the FCR tendon in the deep portion of the wound. The osteotomy was completed with an osteotome. The fragments were then removed with a combination of a rongeur, and sharp dissection cautiously with the [place] blade. A guide pin was placed through the 2nd metacarpal base from the radial aspect near the articular edge aiming just slightly distal towards the proximal metaphyseal flare across the metacarpal base. After confirming on mini-C-arm fluoroscopy the pin position, the screw-in guide was applied, this was drilled, and the 1st portion of the suspensionplasty/FiberTak anchor passed and set. After confirming quality hold, attention was turned to the 1st metacarpal base. The guide pin was passed from the radial aspect of the 1st metacarpal base directed distal and ulnar. It was centered approximately between the volar and dorsal aspects just off the articular cartilage edge. The guide pin was placed and confirmed on and mini C-arm fluoroscopy to be in the desired position and trajectory. This was drilled, the 4 tipped anchor allow capture of the suture tape sutures which were then dunked into the 1st metacarpal base with slight traction and being cognizant of the thumb metacarpal base position relative to the 2nd metacarpal base. After securing this suspensionplasty, the thumb was placed through range of motion and confirmed both clinically and radiographically to be in an appropriate position. Thorough irrigation normal saline was performed. The tourniquet was deflated and hemostasis achieved. Closure performed with 3-0 Vicryl for the capsular reapproximation. Then 3-0 Vicryl and 4-0 Monocryl for subcutaneous and subcuticular layers, respectively. A thumb spica splint was applied. The patient was woken from anesthesia and transferred to the recovery room in stable condition. PLAN: 1. Elevate operative extremity at or above heart level. 2. Ice, acetaminophen and/or ibuprofen, and Percocet for pain as needed. 3. Finger/wrist range of motion as tolerated. 4. Keep the splint clean, dry, and intact until follow-up. 5. Follow up with PA visit in 10-12 days for removal of splint and initiation of OT visit where an Orthoplast splint can be fabricated for her. She should wear this virtually all the time except when showering. Follow-up with me at the 6 week alex for repeat clinical check and three-view radiographs left thumb.
[2024-11-16 08:50] VITALS: BP 108/61; PULSE 69; RESP 16; TEMP 36.1; O2SAT 96
--- NOTE | 2024-11-16 08:53 | P.ANES_ITS ---
Anesthesia Charges Start Date/Time Anesthesia Start Date: 11/16/24 Anesthesia Start Time: 07:20 Stop Date/Time Anesthesia Stop Date: 11/16/24 Anesthesia Stop Time: 08:55 Summary Extremes of Age - Over 70 or under 1: MOBILE MARKETING SPECIALIST Coding CPT Codes CPT Codes: ANESTH LOWER ARM SURGERY - 29083 ([id number]) P2 - PATIENT W/MILD SYST DISEASE, QK - DELICATESSEN CLERK 2-4 CNCRNT ANES PROC, QX - MOBILE MARKETING SPECIALIST SVC W/ MD MED DIRECTION Additional Codes: Summary - Extremes of Age - Over 70 or under 1: MOBILE MARKETING SPECIALIST ([id number])
--- NOTE | 2024-11-16 08:53 | W.ANESCHARGE ---
Anesthesia Charges Start Date/Time Anesthesia Start Date: 11/16/24 Anesthesia Start Time: 07:20 Stop Date/Time Anesthesia Stop Date: 11/16/24 Anesthesia Stop Time: 08:55 Summary Extremes of Age - Over 70 or under 1: TMD TEACHER ASSISTANT Coding CPT Codes CPT Codes: ANESTH LOWER ARM SURGERY - 94458 ([id number]) P2 - PATIENT W/MILD SYST DISEASE, QK - SLASHER SAWYER 2-4 CNCRNT ANES PROC, QX - TMD TEACHER ASSISTANT SVC W/ MD MED DIRECTION Additional Codes: Summary - Extremes of Age - Over 70 or under 1: TMD TEACHER ASSISTANT ([id number])
[2024-11-16 09:05] VITALS: BP 106/59; PULSE 67; RESP 14; O2SAT 95
[2024-11-16 09:20] VITALS: BP 114/62; PULSE 69; RESP 14; O2SAT 96
[2024-11-16 09:35] VITALS: BP 107/67; PULSE 70; RESP 14; TEMP 37.2; O2SAT 96
--- NOTE | 2024-11-16 10:21 | P.NB_ITS ---
Nerve Block Nerve Block Time Seen by Provider: 07:05 Date Seen: 11/16/24 Type of block requested by surgeon for post-operative analgesia: axillary Side: left Time out performed: Yes Verification of patient name: Yes Verification of date of : Yes Site marking: site marked Name of person performing procedure: Bjorn Continuous monitoring Was continuous monitoring of O2 sat, B/P, bale coverer, recorded every 15 minutes?: Yes Procedure Checklist: sterile prep, needles and gloves Ultrasound guided. Images saved: Yes Medications given in 5ml increments after negative aspiration: Ropivicaine %: 0.5 mL: 20 Needle gauge: 22 Patient tolerated procedure well: Yes Additional comments: Needle noted adjacent to nerve Block Charges Block Charge (with Pro Fee): Brachial Plexus Use of Ultrasound Machine for Block: Yes- US Guidance/pain block
--- NOTE | 2024-11-16 10:22 | P.ANES_ITS ---
Anesthesia Charges Start Date/Time Anesthesia Start Date: 11/16/24 Anesthesia Start Time: 07:20 Stop Date/Time Anesthesia Stop Date: 11/16/24 Anesthesia Stop Time: 08:55 Summary Extremes of Age - Over 70 or under 1: MDA Coding CPT Codes CPT Codes: ANESTH LOWER ARM SURGERY - 33005 ([id number]) QK - DISABILITY INSURANCE CLAIM EXAMINER 2-4 CNCRNT ANES PROC, QX - ORDER DESK CLERK SVC W/ MD MED DIRECTION, P2 - PATIENT W/MILD SYST DISEASE Additional Codes: Summary - Extremes of Age - Over 70 or under 1: MDA ([id number])
--- NOTE | 2024-11-16 13:53 | SUR.PREOP ---
TIME?OUT:?07 PT/RN/MDA?VERIFICATION?OF?SURGICAL?SITE,?PROCEDURE, NERVE BLOCK?AND?CONSENT OBTAINED?PRIOR?TO?INVASIVE?PROCEDURE.
== END 2024-11-16 09:50 | disposition home or self-care (01) ==
LOC: OR 06:02
PROVIDERS: PCP Internal Medicine; Visit Provider Orthopaedic Surgery Sports Medicine
PROC: (CPT 25448; principal; 2024-11-16 07:15)
DX: M18.12 Unilateral primary osteoarthritis of first carpometacarpal joint, left hand (principal); G89.18 Other acute postprocedural pain
CPT/HCPCS: 25448; 01830; 73140; 76000; 76942; 99100; C1713; J0330; J0690; J1100; J2250; J2371; J2405; J2704; J2795; J3010; J7120